=== PATIENT | male | born 1940 | race Caucasian/White ===

== ENCOUNTER → 2018-03-26 12:26 | Outpatient (CLI) | payer MEDICARE, OTHER, SELFPAY ==
--- NOTE | 2018-03-26 | DI.CT.S_ITS ---
PROCEDURE: CT LUMBAR SPINE WO CON INDICATIONS: Pain in lumbar spine TECHNIQUE: Noncontrast 3 mm thick sections acquired from the T12 level to the sacrum. Sagittal and coronal reformats were constructed. In this patient, 3-D reformatted images were also performed. For radiation dose reduction, the following was used: automated exposure control. COMPARISON: None. FINDINGS: Image quality: Excellent. Bones: No acute vertebral body compression fractures. No suspicious lytic or blastic bony lesions. Central spinal caliber is of normal overall caliber. No pars defects. S-shaped scoliotic curvature is seen. There is minimal retrolisthesis at L1-L2 and L2-L3. There is minimal anterolisthesis at L3-L4. Mild grade 1 anterolisthesis is seen at the L4-L5 level. No definite associated pars defects are seen. Minimal retrolisthesis is seen at L5-S1. T12-L1: Normal appearance. L1-L2: The disc height is well-preserved. Endplate irregularity is seen. Mild generalized disc bulge is seen. Moderate bilateral neural foraminal narrowing is seen, left greater than right. L2-L3: Moderate to severe loss of disc height is seen on the left side. Vacuum disc phenomenon is seen at this level. Endplate irregularity and sclerosis are seen. Endplate osteophyte formation can be seen, particularly on the left side. There is moderate left-sided and mild right-sided facet hypertrophy seen. There is moderate to severe bilateral neural foraminal narrowing seen. At least moderate central canal narrowing is seen. L3-L4: There is at least moderate loss of disc height. Vacuum disc phenomenon is seen at this level. Endplate irregularity is seen at this level, including mild Schmorl's nodes involving the inferior endplate of L3 and the superior endplate of L4. There is moderate to prominent facet hypertrophy seen, right worse than left. There is at least moderate bilateral neural foraminal narrowing seen at this level. Moderate to severe central canal narrowing is seen. L4-L5: Postoperative changes are seen at this level, with bilateral pedicle screws and vertical fixation rods. No findings of hardware failure or hardware loosening are seen. There is associated streak artifact. Bone grafting material is noted. There has been removal of portions of the posterior elements. At least moderate loss of disc height is seen. Partial calcification/ossification can be seen along this disc level. There is moderate bilateral neural foraminal narrowing seen, left worse than right. No central canal narrowing is seen. L5-S1: At least moderate loss of disc height is seen. Vacuum disc phenomenon is seen at this level. Endplate irregularity is seen, with endplate osteophyte formation. At least moderate bilateral neural foraminal narrowing seen. Mild central canal narrowing is seen. Soft tissues: No retroperitoneal masses or hematomas. Visualized aorta is normal in caliber. Atherosclerotic calcification is noted. A pacer lead is seen on the dry kiln worker image. IMPRESSION: Unremarkable L4-L5 postoperative change, without rashi postoperative complication. Multiple levels of degenerative change are seen, which are overall most prominent at the L3-L4 level, where there is at least moderate bilateral neural foraminal narrowing seen and moderate to severe central canal narrowing present. Dictated by: Anival Carranza M.D. on 03/26/2018 at 13:00 Approved by: Anival Carranza M.D. on 03/26/2018 at 13:08
== END ==
PROVIDERS: Visit Provider Orthopaedic Surgery
DX: M54.5 Low back pain (principal); M48.061 Spinal stenosis, lumbar region without neurogenic claudication
CPT/HCPCS: 72131

== ENCOUNTER 2018-04-16 09:41 | Inpatient (IN) | payer MEDICARE, OTHER, SELFPAY ==
[2018-04-08 09:47] VITALS: BMI 29.9
[2018-04-16] VITALS (32 sets, daily range): BP systolic 79–144; BP diastolic 41–99; PULSE 60–80; RESP 6–16; TEMP 35.8–36.9; O2SAT 80–100; BMI 29.0
--- NOTE | 2018-04-16 | DI.RAD.S_ITS ---
PROCEDURE: XR LUMBAR SPINE 2-3V INDICATIONS: XLIF L2-3, L3-4, L5-S1 TECHNIQUE: 2 intraoperative fluoroscopic views of the lumbar spine were acquired. COMPARISON: None. FINDINGS: Intraoperative fluoroscopic images of lumbar spine shows transpedicular fusion at L2-S1 levels with intervertebral spacer placement at L2-3, L3-4, and L5-S1 levels. There is also suggestion of laminectomy at L4-5 level. IMPRESSION: Fluoroscopy guidance was provided intraoperatively for lumbar spine fusion. Dictated by: Asher Becker M.D. on 04/16/2018 at 18:21 Approved by: Asher Becker M.D. on 04/16/2018 at 18:22
[2018-04-16] MEDS: LACTATED RINGERS 1,000 ML 42 ML IV ×3 (10:18→19:08)
--- NOTE | 2018-04-16 11:41 | PM.PREOP ---
Pre-operative Note Interval Note Pre-op Check: Yes History & Physical Reviewed by Physician and Yes Exam Performed Changes: No
--- NOTE | 2018-04-16 12:32 | P.OP_ITS ---
Operative Date/Time/Diagnoses Date of procedure: 04/16/18 Time of procedure: 18:00 Pre-op diagnosis: Lumbar stenosis with radiculopathy lumbar spondylolisthesis History of lumbar laminectomy Post-op diagnosis: same Procedure & Clinicians Procedure: L2-3 laminectomy L4-5 revision laminectomy L5-S1 revision laminectomy Use of microscope L2-3, L3-4 anterior fusion with cages L2-3, L3-4 posterior fusion L5-S1 TLIF (post/post innerbody fusion) with cage L2-S1 screws icbg placement of epidural catheter Indications: [age] year old male with intractable pain from stenosis. They had failed conservative management and requested operative intervention. Risks and benefits of surgery were discussed and appropriate consents were obtained. Surgeon: Raj Mcdaniel Quality And Reliability Engineer: Vandana Oconnor Anesthesia Type: General Operative Notes Findings: None Closure Type: primary Specimen(s): none sent Implants & Drains: NuVasive Reline Screws and XLIF cages Globus Rise cage Applied: catheter Estimated Blood Loss (mL): 150 Blood products transfused: none Procedure in detail: Patient was brought to the operating room and intubated on the table. Time-out was performed. They were then rolled over to the lateral decubitus position with the [id number]. The table was bent and they were taped down in the correct position. X-rays were taken to confirm a true AP and lateral. Preoperative antibiotics were given. The left flank was prepped and draped in standard sterile fashion. Using fluoroscopy, a 3 cm incision was made above the iliac crest. We bluntly dissected down with Metzenbaum scissors and split the 3 abdominal muscle layers. We dissected out the retroperitoneal space and using finger guidance, brought our 1st dilator down to the psoas muscle. Using neuromonitoring and fluoroscopy, we placed it through the psoas onto the L3-4 disc space in an anterior position and gradually pulled the dilator posteriorly along the disc space. We placed our guidewire and measured our depth for the retractor. We then dilated with the next 2 dilators and then placed our retractor over the dilators. Position was confirmed with fluoroscopy and the retractor was locked down to the bar. We opened up the retractor and checked with neuro monitoring. We then placed the candida and again checked with neuro monitoring. The retractor was opened further and the ALL retractor was placed. An annulotomy was performed. We then performed a complete diskectomy with ring curette, pituitary, box osteotome. A Del Valle was advanced across the disc space under fluoroscopy to release the lateral annulus on the opposite side. We then used sequentially larger trials and confirmed under fluoroscopy. An XLIF cage was packed with Osteocell bone graft and impacted into the L3-4 disc space with fluoroscopy for the anterior fusion at this level. The wound was irrigated. The retractor was closed down. The candida was removed. We carefully removed the retractor with direct visualization to make sure there was no neurovascular or abdominal injury. We then went up to the L2-3 level. Again we repeated the same procedure with dilators, retractor, lateral release, complete diskectomy, and placing a cage with bone graft into the anterior space for the anterior fusion at L2-3. We again carefully removed the retractor with direct visualization. Final x-rays were taken. The muscle fascia was closed, superficial tissue was closed. The skin was closed. Sterile dressing was placed. The patient was then rolled over on the well-padded prone position on the Alberto table. Using fluoroscopy for localization, a 14 cm incision was made in the midline using his previous incision. We dissected down the left sided paraspinal muscles to expose the lamina and confirmed our position. We then exposed the transverse processes at the level of fusion. We had to dig through some of the old bone but exposed our L4 and L5 [place] screws and removed the set screws and the nataly but kept the screws in place. We then began placing our screws. A bur was used to decorticate the junction of the facet and transverse process. We then advanced a gear shifter down the pedicle using neuro monitoring. We checked with the ball probe to confirm a floor and 4 singh on the pedicle. We then tapped also with neuro monitoring. We checked again with the ball probe and then placed our screw with neuro monitoring. The screws were placed in this fashion down the left pedicles of L2 , L3, and S1. The nataly was loosely placed and x-rays were taken to confirm positioning and then the set screws were locked down except S1. We then brought in the microscope. We started at L5-S1. A revision left-sided laminotomy was performed at this level. We used osteotomes to do a complete facetectomy to open up the foramen. We had carefully did through the scar tissue from the previous surgery. This was separate and distinct from a standard laminectomy for approach as this was a revision surgery with much more extensive and time consuming and delicate dissection through the scar. We then began the preparation for the TLIF. We cleared more bony tissue along the length of the pedicle. The dura was carefully retracted medially, releasing scar tissue to free it up. An annulotomy was performed. We then used a combination of paddles, Rain, curettes, and pituitaries to perform a complete diskectomy at L5-S1. We placed bone graft into the anterior disc space and then placed our globus Rise cage under fluoroscopic guidance. This was then expanded under fluoroscopy. We then locked down our S1 screw. We then went up to L3-4 to start our laminectomy. We used a combination of bur and Kerrison rongeurs. The lower 2/3 of the laminectomy was completely scarred in from his previous laminectomy and this was actually a revision level with amount of scar dissection had to be performed. We then to this up to L2-3 which was a first-time laminectomy. We carefully depressed the dura to reach to the opposite side and decompress the entire central canal. We cleared out the neural foramen. In the end the ball probe could be placed cephalad and caudally across to the opposite side in the foramen and everything was opened. The wound was copiously irrigated. A small stab incision was made over the PSIS and a Jamshidi needle was placed into the iliac crest and several mL of bone marrow was aspirated. This was mixed with our locally harvested bone graft as well as the remaining Osteocell and placed in the posterolateral gutter for fusion at L2-3, L3-4, and the posterior portion of the TLIF at L5S1. An epidural catheter was primed with 4mL of 0.5% bupivacaine, 100 mcg fentanyl, 4 mg Duramorph, 1 mg Stadol. The dura was depressed under the cephalad lamina with a ball probe and the epidural catheter was gently advanced 6 cm cephalad. The fascia was then closed. The epidural was then injected without resistance. The catheter was pulled and we closed more over the fascia. We then used fluoroscopy and made another 14 cm incision on the right side. We used Bovie to come down to split the fascia. We exposed our old screws on the right-sided L4 and L5. The set screws and nataly were removed. We then percutaneously placed Jamshidi needles down the right pedicles of L2, L3, and S1 with neural monitoring and fluoroscopy. These were switched out to guidewires, tapped and then our MAS Reline screws were placed. The nataly was placed and the set screws locked down. Final x-rays were taken. The wound was irrigated. The fascia was closed. Vancomycin powder was placed in the wounds. The superficial and skin were closed. Sterile dressing was placed. The patient was then rolled over, extubated, brought to the recovery room with no complications. Complications: none Condition: stable Disposition: PACU Plan for aftercare: Inpatient. Up with therapy.
[2018-04-16] MEDS: CEFAZOLIN 2 GM/100 ML FROZ.PIGGY IV (12:33)
--- NOTE | 2018-04-16 13:22 | SUR.OPER ---
Right lateral on padded OR table. Head on pillow, gel axillary roll, pillow to support left arm. Legs flexed, pillows between legs, gel pad under down leg and ankle. Multiple passes of 3 inch cloth tape across shoulder, hip, upper and lower legs to secure patient on OR table.
--- NOTE | 2018-04-16 13:22 | SUR.OPER ---
Prone on spine table, head in foam head support, padded chest and pelvic supports, gel pad at knees, lower legs supported by pillows; nipples, genitalia and toes free of pressure, arms secured on foam padded arm boards at <90 degrees abduction. Tape over blanket at thigh secured to table.
[2018-04-16] MEDS: SODIUM CHLORIDE 0.9% 1,000 ML, GENTAMICIN 80 MG IRR (13:32)
[2018-04-16] MEDS: THROMBIN (BOVINE) 5,000 UNIT VIAL 5000 UNIT TOP (13:32)
[2018-04-16] MEDS: BUPIVACAINE 0.5% (PF) 4 ML, MORPHINE-PF 4 MG, BUTORPHANOL 1 MG, fentaNYL 100 MCG INJ (13:34)
[2018-04-16] MEDS: VANCOMYCIN 1,000 MG VIAL 1000 MG TOP (13:34)
[2018-04-16] MEDS: CEFAZOLIN VIAL 2 GM in SODIUM CHLORIDE 0.9% 100 ML 200 ML IV (16:31)
--- NOTE | 2018-04-16 18:34 | SUR.PHASEI ---
Small abrasion (~2cm) noted to upper lip. No drainage seen.
--- NOTE | 2018-04-16 19:32 | SUR.PHASEI ---
Pulled at CPAO mask and it is removed. Oral airway remains in place with cannula tubing in opening and sats are actually improved. Some movement of arm as if trying to scratch cheeks. Not responding however to verbal command.
--- NOTE | 2018-04-16 19:34 | SUR.PHASEI ---
Informed Dr Mcdaniel about slow progress and patient will be transferred to an ICU bed.
--- NOTE | 2018-04-16 19:37 | SUR.PHASEI ---
Intermittent restlessness but no appropriate response to verbal stimulus.
--- NOTE | 2018-04-16 19:54 | SUR.PHASEI ---
At 1937 spit out oral airway and intermittent restlessness became more agitation. Still not following command. Some ups and downs with sats however generall in mid 90s on RA. Occasionall upper respiratory congestion- full snore. Movement of arms/hands to face as if trying to scartch. ? itch from epidural meds.
--- NOTE | 2018-04-16 19:58 | SUR.PHASEI ---
Dr Jack at bedside checking out situation and informed of transfer pending to ICU.
--- NOTE | 2018-04-16 21:07 | SUR.PHASEI ---
Prolonged PACU stay due to slow emergence from anesthesia, respiratory needs, and hemodynamics. By discharge VS had improved as did respiratory state but delerium persisted. Other than that factor, PACU discharge criteria met in the setting of a discharge to an ICU bed.
[2018-04-16] MEDS: LACTATED RINGERS 1,000 ML 125 ML IV (22:00)
--- NOTE | 2018-04-16 22:23 | PC.NURSE ---
2100- Patient arrived from PACU to room 105. Patient arousable with stimulus but when not stimulated patient drifts off to somulence. Patient is having apnea at times. Patient is unable to answer questions and has no family with him. Admit deferred due to patient inablility to answer questions.
[2018-04-17] VITALS (11 sets, daily range): BP systolic 104–118; BP diastolic 48–71; PULSE 60–66; RESP 15–21; TEMP 36.6–37.1; O2SAT 94–100
[2018-04-17] MEDS: CEFAZOLIN 2 GM/100 ML FROZ.PIGGY IV ×2 (00:56→06:51)
[2018-04-17] MEDS: METOPROLOL ER 50 MG TABLET 100 MG PO ×3 (01:00→20:49)
[2018-04-17] MEDS: LOSARTAN 50 MG TABLET 100 MG PO (01:01)
[2018-04-17] MEDS: GABAPENTIN 300 MG CAPSULE PO ×2 (01:02→20:49)
[2018-04-17] MEDS: AMLODIPINE 5 MG TABLET 10 MG PO ×2 (01:03→20:47)
[2018-04-17] MEDS: TAMSULOSIN 0.4 MG CAPSULE 0.8 MG PO ×2 (01:05→20:50)
[2018-04-17] MEDS: CELECOXIB 200 MG CAPSULE PO (01:05)
--- NOTE | 2018-04-17 05:13 | PC.NURSE ---
When pt turned and moved at 0405 noticed back dressing saturated through and leaking out side and bottom, skin surrounding cleaned and ABD applied with pack of 4x4s and underpad changed. Patient continues to deny pain, states this is the most pain free he has been in 2 months. Ice applied to back.
[2018-04-17 05:22] LABS: Hematocrit 35.8 % (41-53); Hemoglobin 12.4 g/dL (13.5-17.5)
[2018-04-17] MEDS: MAG HYDROX/ALUM/SIMETH 30 ML UDC PO (05:40)
--- NOTE | 2018-04-17 07:32 | PM.PNPO.1 ---
Subjective Date Patient Seen: 04/17/18 Time Patient Seen: 07:32 Interval history: He was very sedated postoperatively and had to be admitted to the ICU for overnight monitoring but the sedation wore off and he has been doing fine. Minimal discomfort at this point. Exam Vital Signs (past 8 hours): - 04/17/18 00:00 04/17/18 01:00 04/17/18 01:01 Temperature 98 F Pulse Rate 60 60 60 Respiratory Rate 16 Blood Pressure 118/65 118/65 118/65 Pulse Oximetry 100 04/17/18 02:00 04/17/18 02:12 04/17/18 05:26 Temperature 98.6 F Pulse Rate 60 61 Respiratory Rate 20 Blood Pressure 109/58 L 109/58 L 118/59 L Pulse Oximetry 100 Oxygen Delivery Method CPAP Oxygen Flow Rate 2 Const Orientation: alert and oriented x3 Back/Spine/Pelvis Other: 5/5 motor both lower extremities. He had saturated his dressing and this has been reinforced. Objective Labs Result Diagrams: 04/17/18 05:00 Labs: Laboratory Results - last 24 hr 04/17/18 05:00 Hgb 12.4 L Hct 35.8 L Assessment & Plan Post-op Postoperative Procedures Operation Date: 04/16/18 11:45 Actual Procedures Side Surgeon p L2-3,L3-4 redo L5-S1 Laminictomy & Instru Ant/Post Fusion w/bone graft L2-S1 Raj Mcdaniel MD he is doing very well today. No longer needs ICU care it can go to a regular floor bed. Mobilize with physical therapy. Anticipate custodial on discharge in 2 more days.
[2018-04-17] MEDS: FLECAINIDE 100 MG TABLET PO ×2 (09:11→20:49)
[2018-04-17] MEDS: DOCUSATE 100 MG CAPSULE PO ×2 (09:11→20:48)
[2018-04-17] MEDS: MULTIVITAMIN 1 TABLET 1 TAB PO (09:12)
[2018-04-17] MEDS: HYDROCODONE/ACET 5/325 TABLET 1 TAB PO ×2 (09:17→15:34)
--- NOTE | 2018-04-17 11:10 | PT.IIE ---
Current Diagnoses Spinal stenosis, lumbar region with neurogenic claudication (04/16/18) Strain of muscle, fascia and tendon of lower back, subsequent encounter (04/16/18) Other specified postprocedural states (04/16/18) Surgery Performed Operation Date: 04/16/18 11:45 Actual Procedures p L2-3,L3-4 redo L5-S1 Laminictomy & Instru Ant/Post Fusion w/bone graft L2-S1 - Raj Mcdaniel MD Surgical History (Last Updated 04/08/18 @ 10:20 by Cherelle Sevilla RN) History of lumbar surgery (Acute ~2010) History of total left hip arthroplasty (Acute 07/05/15) History of vasectomy (Acute) Hx of tonsillectomy (Acute) Status post cataract extraction of both eyes with insertion of intraocular lens (Acute) Medical History (Last Updated 04/08/18 @ 10:43 by Cherelle Sevilla RN) Anxiety (Acute) Arrhythmia (Acute) Arthritis (Acute) Depression (Acute) Easy bruisability (Acute) Enlarged prostate (Acute) Fracture of left lower leg (Acute) HTN (hypertension) (Acute) Hyperlipidemia (Acute) Nasal congestion (Acute) Numbness and tingling of both lower extremities (Acute) BIANKA on CPAP (Acute) PAF (paroxysmal atrial fibrillation) (Acute) Pacemaker (Acute 10/16/16) Post-nasal drip (Acute) Sciatica (Acute) Shoulder separation (Acute ~2017) Tachycardia (Acute) Vertigo (Acute) Physical Therapy Inpatient Evaluation/Re-Eval M1 PT/OT-IP Prior Functional Status Start: 04/17/18 13:01 Freq: NEEDED Status: Active Protocol: Document 04/17/18 11:10 [facility] (Rec: 04/17/18 13:11 [facility] [id number]) Medical Review Prior Functional Status Medical History Reviewed Yes Mobility and Gait indep. ambulator without device, short outdoor ambulation; using a FWW the past 2 wks prior to surgery d/ t pain Activities of Daily Living and IADL's indep. I/ADLs Social History Household Members none Living Arrangements House Number of Floors (Floors) Two Floors Number of Stairs To Enter/Railing? 2 SE R ascending rail; 2nd floor with 8 steps, landing, then 8 more steps (hobby room only upstairs, does not need to go up/down stairs inside upon return home) Home Environment High Toilet Walk in Shower Home Equipment Front Wheel Walker Shower Seat with Backrest M2 PT-IP Current Condition Start: 04/17/18 13:01 Freq: NEEDED Status: Active Protocol: Document 04/17/18 11:10 [facility] (Rec: 04/17/18 13:11 [facility] [id number]) Physical Therapy Current Condition Current Condition Evaluation Date 04/17/18 Treatment Diagnosis L2-4 redo/L5-S1 lami/fusion , impaired gait and mobility Precautions Lumbar Precautions Log Roll No Twisting Limit Bending Lifting Restriction of 10 lbs Gait Belt above Incisional Area M3 PT-IP Subjective Start: 04/17/18 13:01 Freq: NEEDED Status: Active Protocol: Document 04/17/18 11:10 [facility] (Rec: 04/17/18 13:11 [facility] [id number]) Subjective Physical Therapy Visit Type Type Initial Evaluation Visit Start Time 10:34 Visit Stop Time 11:10 Total Visit Minutes 36 Number of LEATHER ROLLER Visits 0 Physical Therapy Visit Comments Patient Comments pt states the pain meds making him a little loopy. Patient Goals pt wants to regain independence Therapy Pain Assessment Pain When Pain Assessed During Mobility Pain Present Pain Present Pain Reported Location Back Intensity 3 Scale Used Numeric (1 - 10) M4 PT-IP Mobility and Gait Start: 04/17/18 13:01 Freq: NEEDED Status: Active Protocol: Document 04/17/18 11:10 [facility] (Rec: 04/17/18 13:11 [facility] [id number]) PT-Bed Mobility Assessment Rolling Type of Rolling Log Rolling Level of Assist Moderate Assistance 1 Person Assistance Supine to Sit Supine to Sit Moderate Assistance 1 Person Assistance Bedrails Scooting Scooting to Edge of Bed Minimal Assistance PT-Transfer Assessment Sit to and From Stand Sit to and from Stand Contact Guard Assistance Use of Upper Extremities Equipment Transfer Assistive Device Gait Belt Front Wheeled Walker Transfers Transfer Destination Chair Transfer Technique Stand Step Pivot Transfer Ability Level of Assist Contact Guard Assistance Comments Mobility Comments BP 98/48 supine, 109/71 sitting with no c/o dizziness or lightheadedness but does state loopy from pain meds. Gait Assessment Gait Gait Assistance Required: Contact Guard Assist Distance (Feet) 10 Assistive Devices Assistive Device Gait Belt Front Wheeled Walker Gait Deviations General Gait Pattern Antalgic Decreased Stride Length Decreased Feet Clearance Factors Limiting Gait Function Factors Limiting Gait Function Decreased Activity Tolerance Decreased Strength Pain Poor Balance PT-Balance Assessment Sitting Balance and Reactions Static Sitting Balance Ability Good Dynamic Sitting Balance Ability Good Standing Balance and Reactions Static Standing Balance Ability Fair Dynamic Standing Balance Ability Fair Device Used FWW M5 PT-IP Objective Assessments Start: 04/17/18 13:01 Freq: NEEDED Status: Active Protocol: Document 04/17/18 11:10 [facility] (Rec: 04/17/18 13:11 [facility] [id number]) Orientation Orientation/Cognition Level of Alertness Alert Orientation Name Age Situation Gross Range of Motion Lower Extremity ROM Assessment Within Functional Limits Strength Lower Extremity Strength Hip hip flexion 3+/5 B Knee flexion 4/5 B, extension 5/5 B Ankle DF 4/5 R and 5/5 L Coordination Assessment Gross Coordination Gross Coordination WNL Sensation Assessment Sensation Gross Sensation WNL Muscle Tone Muscle Tone WNL Yes M6 PT-IP Treatment Start: 04/17/18 13:01 Freq: NEEDED Status: Active Protocol: Document 04/17/18 11:10 [facility] (Rec: 04/17/18 13:11 [facility] [id number]) Physical Therapy Treatment Education Education Provided Precautions Post-Op Packet Safety M7 PT-IP Assessment and Plan Start: 04/17/18 13:01 Freq: NEEDED Status: Active Protocol: Document 04/17/18 11:10 [facility] (Rec: 04/17/18 13:11 [facility] [id number]) PT Summary Assessment and Plan Potential Rehabilitation Potential Good Status of Condition at Evaluation Stable Summary Impairments Pain Strength Balance Bed Mobility Transfers Gait Activity Tolerance Assessment Summary POD #1 L2-3, L3-4 redo, L5-S1 laminectomy & fusion. Pt able to get OOB with 1 assist, and ambulate a short distance with a FWW, but very limited mobility given his impaired activity tolerance and mobility. Pt is unable to walk household distances, and does not have any assistance at home upon d/c. Pt is well below a safe functional level to thrive at home, however, he is a strong candidate for SNF rehabilitation upon d/c to progress his gait, activity tolerance, functional independence, and to promote a safe recovery. Treatment Plan Physical Therapy Treatment Plan Bed Mobility Training Transfer Training Gait Training Balance Retraining Discharge Planning Hot or Cold Pack Neuromuscular Re-ed Other Recommendations and Next Treatment prog. gait, review precautions Focus and log roll Recommendations To Nursing Amount of Assist Needed 1 Person Assist Discharge Recommendations PT Discharge Recommendations SNF Rehab
--- NOTE | 2018-04-17 13:38 | PC.NURSE ---
Pt sitting up to chair most of this shift. Able to ambulate in [place] with PT. Reports minimal pain. Notes some sang drainage on previously reinforced dsg. Removed excess gauze and reinforced with fresh 4X4s. Secured with paper tape. RA sat 100% while awake.
--- NOTE | 2018-04-17 14:00 | CM.DANOTE ---
Patient is an 78 year old male who was admitted on 04/16/18 for Surgery. Pt has [employer] and [employer] for insurance and his PCP is Dr. Ellison. EMR was reviewed. Per Ortho , pt tolerated procedure and now floor care status and likely need SNF at d/c. Per PT, recommending SNF prior to safe return home alone. SW met bedside with pt and explained role and he confirmed that he lives at home alone between [facility] and [facility] and is mostly independent with ADL's at baseline. Pt confirms that his son Jimmy is his DPOA and states he has hired private pay caregivers through [facility] for additional support after discharge and amount of hours and days to still be determined as they are a new service for him. Pt denies any hx of HH or SNF and states he is agreeable to SNF at d/c prior to safe return home since he is below baseline for ambulation and currently requiring oxygen. SW provided the SNF Choice List and pt states his preference would be 1) [facility] 2) [facility] and requesting referral first sent to [facility]. SW inquired if pt would like SW to contact anyone with updates on d/c plan and pt states he will have visitors from his family and caregiver later today and he would update them. SW updated White board with contact info for d/c train planner. SW faxed pt facesheet to [facility] and requested review for possible placement at d/c prior to return home. PASRR completed. Plan: SW to follow for [facility] review for possible placement at d/c when medically stable prior to safe return home alone with private pay caregiver support. SUGEY Arellano Discharge Planning/Care Management CM Discharge Assessment Start: 04/17/18 13:55 Freq: Status: Active Protocol: Document 04/17/18 13:57 BF (Rec: 04/17/18 14:00 BF [id number]) Discharge Planning Assessment Assigned Welder Gun SUGEY Schofield DPOA/Assigned Designee Name son Jimmy Hedrick Contact Information [phone] Advance Directives? Yes Advance Directives on File No History Provided By Patient Medical Record Has Patient been admitted in last 30 No days? Prior Living Arrangements House Household Members none Comment Patient resides at home alone and typically is Independent at baseline but has set up some private pay caregiving for additional support. Independent with ADL's Yes Is patient alert and oriented? Yes Needs Assistance With Home Chores / Shopping Caregiver for Another No Patient/Family Preference Senior Living Facility Comment Patient agreeable with SNF prior to safe return home Barriers to Discharge No Discharge Plan Senior Living Facility Transportation Arrangement Likely provided by SNF at d/c Referrals Initiated Senior Living If patient plan is SNF: Has PASSR been Yes completed? Medicare Choice List Provided Yes SNF/HH Preference 1) [facility] 2) [facility] Has Agency SNF been contacted Yes Comment Only referral to [facility] still Whiteboard Updated in Patient Room with Yes name and ext. # of Welder Gun Review Status In Process Please Provide Date Initial DC 04/17/18 Assessment Was Performed Next Review Type Continued Stay Review Pre-Anesthesia Assessment Start: 04/08/18 09:47 Freq: Status: Complete Protocol: Document 04/08/18 09:47 CAB (Rec: 04/08/18 10:39 [facility] [id number]) Pre-Anesthesia Assessment Patient Information Reviewed Via Phone Assessment Assessment Completed With Patient H&P Completed Within 30 Days Yes Lab Results EKG Primary Care Provider Edwar Ellison Seen Specialist in Last 12 Months Yes Specialist Seen Stage Builder Orthopedist Primary Language [place] Radioactive Waste Disposal Dispatcher Required No Height 172.72 cm Weight 89.358 kg Body Mass Index (BMI) 29.9 Hearing Ability Hard of Hearing Use of Hearing Aid Visual Assist Glasses Dentition Type Teeth, Natural Present Barriers to Learning Auditory Hx Anesthesia Reactions No Hx Family Anesthesia Reaction No Hx Malignant Hyperthermia No Hx Blood Transfusions No Anesthesia Review Requested No Certified Emergency Vehicle Technician No alcohol intake current alcohol intake frequency 0-2 drinks per day Smoking Status Former smoker Tobacco type cigarettes how long ago did patient quit smoking Quit age 23 Substance Use Type does not use Pain Present Pain Reported Musculoskeletal Symptoms Abnormal Gait Back Pain Difficulty Walking Joint Pain Numbness Tingling Patient is completely paralyzed or No completely immobile Prosthesis or Orthotic Device Front Wheel Walker Mental Status Oriented to own ability Comment limited walking range r/t pain Is patient on oxygen? No Does patient have BLANC/SOB No Hx Sleep Apnea Yes CPAP/BIPAP use prescribed and used routinely Will Bring CPAP/BIPAP DOS Yes Currently Taking a Beta Nawaf Yes: Metoprolol Can You Climb a Flight of Stairs Without Yes SOB Hx Chest Pain No Hx SOB No Hx Syncope or Dizziness Yes: Occasional vertigo Anti-Coagulant Therapy Yes: Eliquis-Advised to hold 3 days prior per Cardiology Has a Stage Builder Yes: Dr. Arriola visit 04/01 Cardiac Testing Yes: ECHO 08/12/17, Nuc stress 08/13/17 Hx Pacemaker/ICD Yes Pacemaker Rep Required? Yes: Rep contacted 04/08/18 Cardiac Clearance Received Yes Comment Cardiac clearance, testing, and pacemaker form to [facility] records Diet Type At Home Regular dysphagia No Bladder Pattern Nocturia Urinary Catheter Present No Hx Urinary Self Catheterization No Diabetes No Hx Drug Resistant Organism No Presence of External or Internal Medical Yes Devices Comment Pacemaker Have you traveled outside the [facility] in the last 30 days? Marital Status Lives With none Prior Living Arrangements House Number of Floors (Floors) Two Floors Number of Stairs To Enter/Railing? none Support System Child/Children Friend(s) Does the Patient Have Assistance After No: Possibility, nothing firm Surgery yet Patient Discharge Plan Description Home Health Return Home Comment Pt advised 3-4 day length of stay per robin's office. Son lives in [place] Feels Safe in Current Environment Yes Been Physically Hurt or Threatened By a No Person in Current Environment Do you have thoughts of harming yourself None or others? Are you currently considering suicide? No Do you have a plan to hurt yourself or No Plan others? Do You Have Any Spiritual Beliefs That No May Affect Your HC Choices? Do You Have Any Cultural Practices That No May Affect Your HC Choices? Spiritual Referral None Who Can We Speak to About Patient's Care Family, friends Identifying Code for Release of Patient Declines to issue Information Health Care Proxy/Next of Kin Jimmy Hedrick (son) Health Care Proxy Emergency Contact Name Jimmy Hedrick (son) Emergency Contact Advance Directives? Yes Advance Directives on File No Requested Patient Bring Advanced Yes Directives DOS Power of Electrolysis Needle Operator Yes Power of Electrolysis Needle Operator Name Jimmy Hedrick (son) Power of Electrolysis Needle Operator PAC Instructions Bring CPAP/BIPAP Do not shave/clip surgical site Durable medical equipment Medications to take/avoid Nasal antibiotic No ETOH/petroleum product on skin DOS NPO Post-op transportation Pre-surgical wash Sturdy shoes/comfortable clothes Do not bring valuables and remove jewelry
--- NOTE | 2018-04-17 14:55 | PT.IPTN ---
Current Diagnoses Spinal stenosis, lumbar region with neurogenic claudication (04/16/18) Strain of muscle, fascia and tendon of lower back, subsequent encounter (04/16/18) Other specified postprocedural states (04/16/18) Surgery Performed Operation Date: 04/16/18 11:45 Actual Procedures p L2-3,L3-4 redo L5-S1 Laminictomy & Instru Ant/Post Fusion w/bone graft L2-S1 - Raj Mcdaniel MD Physical Therapy Treatment Note M2 PT-IP Current Condition Start: 04/17/18 13:01 Freq: NEEDED Status: Active Protocol: Document 04/17/18 14:55 [facility] (Rec: 04/17/18 15:57 [facility] [id number]) Physical Therapy Current Condition Current Condition Evaluation Date 04/17/18 Treatment Diagnosis L2-4 redo/L5-S1 lami/fusion , impaired gait and mobility Precautions Lumbar Precautions Log Roll No Twisting Limit Bending Lifting Restriction of 10 lbs Gait Belt above Incisional Area M3 PT-IP Subjective Start: 04/17/18 13:01 Freq: NEEDED Status: Active Protocol: Document 04/17/18 14:55 [facility] (Rec: 04/17/18 15:57 [facility] [id number]) Subjective Physical Therapy Visit Type Type Treatment Note Visit Start Time 14:30 Visit Stop Time 14:55 Total Visit Minutes 25 Number of CUSTOMER SERVICE REPRESENTATIVE Visits 0 Physical Therapy Visit Comments Patient Comments pt notes that a nap did him well this afternoon. M4 PT-IP Mobility and Gait Start: 04/17/18 13:01 Freq: NEEDED Status: Active Protocol: Document 04/17/18 14:55 [facility] (Rec: 04/17/18 15:57 [facility] [id number]) PT-Bed Mobility Assessment Rolling Type of Rolling Log Rolling Level of Assist Minimal Assistance 1 Person Assistance Supine to Sit Supine to Sit Minimal Assistance 1 Person Assistance Scooting Scooting to Edge of Bed Standby Assistance PT-Transfer Assessment Sit to and From Stand Sit to and from Stand Contact Guard Assistance Use of Upper Extremities Equipment Transfer Assistive Device Gait Belt Front Wheeled Walker Transfers Transfer Destination Chair Transfer Technique Stand Step Pivot Transfer Ability Level of Assist Contact Guard Assistance Gait Assessment Gait Gait Assistance Required: Contact Guard Assist Distance (Feet) 100 Assistive Devices Assistive Device Gait Belt Front Wheeled Walker Gait Deviations General Gait Pattern Antalgic Decreased Stride Length Factors Limiting Gait Function Factors Limiting Gait Function Decreased Activity Tolerance Decreased Strength Pain Comments Gait Comments Mild impaired L foot placement during gait due to pain and weakness. M5 PT-IP Objective Assessments Start: 04/17/18 13:01 Freq: NEEDED Status: Active Protocol: Document 04/17/18 11:10 [facility] (Rec: 04/17/18 13:11 [facility] [id number]) Orientation Orientation/Cognition Level of Alertness Alert Orientation Name Age Situation Gross Range of Motion Lower Extremity ROM Assessment Within Functional Limits Strength Lower Extremity Strength Hip hip flexion 3+/5 B Knee flexion 4/5 B, extension 5/5 B Ankle DF 4/5 R and 5/5 L Coordination Assessment Gross Coordination Gross Coordination WNL Sensation Assessment Sensation Gross Sensation WNL Muscle Tone Muscle Tone WNL Yes M6 PT-IP Treatment Start: 04/17/18 13:01 Freq: NEEDED Status: Active Protocol: Document 04/17/18 11:10 [facility] (Rec: 04/17/18 13:11 [facility] [id number]) Physical Therapy Treatment Education Education Provided Precautions Post-Op Packet Safety M7 PT-IP Assessment and Plan Start: 04/17/18 13:01 Freq: NEEDED Status: Active Protocol: Document 04/17/18 14:55 [facility] (Rec: 04/17/18 15:57 [facility] [id number]) PT Summary Assessment and Plan Summary Assessment Summary POD #1. Pt with improvements with bed mobility to Min A for log roll, and reminders of precautions to not twist when turning with ambulation. Pt was able to increase his gait distance this session. Overall , pt has improved since earlier this date, but still requires physical assistance for bed mobility, and is below his prior level of function. Goals Bed Mobility Goal Independent Transfer Goal Independent Gait Goal Independent Front Wheel Walker Gait Distance 300 ft Other Goals up/down 2 steps R ascending rail and SBA Days to Meet Goals 5 Frequency of Treatment Frequency Of Treatment Twice a Day Treatment Plan Other Recommendations and Next Treatment bed mobility, review Focus precautions, gait and stairs Recommendations To Nursing Amount of Assist Needed 1 Person Assist Discharge Recommendations PT Discharge Recommendations SNF Rehab
--- NOTE | 2018-04-17 16:47 | OT.IP.EVAL ---
Current Diagnoses Spinal stenosis, lumbar region with neurogenic claudication (04/16/18) Strain of muscle, fascia and tendon of lower back, subsequent encounter (04/16/18) Other specified postprocedural states (04/16/18) Surgery Performed Operation Date: 04/16/18 11:45 Actual Procedures p L2-3,L3-4 redo L5-S1 Laminictomy & Instru Ant/Post Fusion w/bone graft L2-S1 - Raj Mcdaniel MD Past Medical History (Last Updated 04/08/18 @ 10:43 by Cherelle Sevilla RN) Anxiety (Acute) Arrhythmia (Acute) Arthritis (Acute) Depression (Acute) Easy bruisability (Acute) Enlarged prostate (Acute) Fracture of left lower leg (Acute) HTN (hypertension) (Acute) Hyperlipidemia (Acute) Nasal congestion (Acute) Numbness and tingling of both lower extremities (Acute) BIANKA on CPAP (Acute) PAF (paroxysmal atrial fibrillation) (Acute) Pacemaker (Acute 10/16/16) Post-nasal drip (Acute) Sciatica (Acute) Shoulder separation (Acute ~2017) Tachycardia (Acute) Vertigo (Acute) Surgical History (Last Updated 04/08/18 @ 10:20 by Cherelle Sevilla RN) History of lumbar surgery (Acute ~2010) History of total left hip arthroplasty (Acute 07/05/15) History of vasectomy (Acute) Hx of tonsillectomy (Acute) Status post cataract extraction of both eyes with insertion of intraocular lens (Acute) Occupational Therapy Inpatient Evaluation/Re-Eval M1 PT/OT-IP Prior Functional Status Start: 04/17/18 13:01 Freq: NEEDED Status: Active Protocol: Document 04/17/18 11:10 [facility] (Rec: 04/17/18 13:11 [facility] [id number]) Medical Review Prior Functional Status Medical History Reviewed Yes Mobility and Gait indep. ambulator without device, short outdoor ambulation; using a FWW the past 2 wks prior to surgery d/ t pain Activities of Daily Living and IADL's indep. I/ADLs Social History Household Members none Living Arrangements House Number of Floors (Floors) Two Floors Number of Stairs To Enter/Railing? 2 SE R ascending rail; 2nd floor with 8 steps, landing, then 8 more steps (hobby room only upstairs, does not need to go up/down stairs inside upon return home) Home Environment High Toilet Walk in Shower Home Equipment Front Wheel Walker Shower Seat with Backrest M1 PT/OT-IP Prior Functional Status Start: 04/17/18 16:30 Freq: NEEDED Status: Active Protocol: Document 04/17/18 16:32 [facility] (Rec: 04/17/18 16:47 [facility] [id number]) Medical Review Prior Functional Status Medical History Reviewed Yes Mobility and Gait indep. ambulator without device, short outdoor ambulation; using a FWW the past 2 wks prior to surgery d/ t pain Activities of Daily Living and IADL's indep. I/ADLs. Pt states wears slipper at home. Social History Household Members none Living Arrangements House Number of Floors (Floors) Two Floors Number of Stairs To Enter/Railing? 2 SE R ascending rail; 2nd floor with 8 steps, landing, then 8 more steps (hobby room only upstairs, does not need to go up/down stairs inside upon return home) Home Environment High Toilet Walk in Shower Home Equipment Front Wheel Walker Shower Seat with Backrest M2 OT-IP Current Condition Start: 04/17/18 16:30 Freq: Status: Active Protocol: Document 04/17/18 16:32 [facility] (Rec: 04/17/18 16:47 [facility] [id number]) Occupational Therapy Current Condition Current Condition Evaluation Date 04/17/18 Treatment Diagnosis Spinal Stenosis Diagnosis Onset Date 04/16/18 Post Operative Precautions Lumbar Precautions Log Roll No Twisting Limit Bending Lifting Restriction of 10 lbs Gait Belt above Incisional Area M3 OT- IP Subjective and Pain Start: 04/17/18 16:30 Freq: Status: Active Protocol: Document 04/17/18 16:32 [facility] (Rec: 04/17/18 16:47 [facility] [id number]) OT- Subjective Occupational Therapy Visit Type Type Initial Evaluation Visit Start Time 15:30 Visit Stop Time 16:00 Total Visit Minutes 30 Occupational Therapy Visit Comments Patient Comments Pt agreeable to do therapy. OT Pain Assessment Pain When Pain Assessed At Rest Pain Present Pain Present Pain Reported Location Back Intensity 3 Scale Used Numeric (1 - 10) M4 OT- IP ADL's Start: 04/17/18 16:30 Freq: Status: Active Protocol: Document 04/17/18 16:32 [facility] (Rec: 04/17/18 16:47 [facility] [id number]) OT ADL-Dressing General Eval Lower Body Dressing Ability Maximum Assistance Areas Needing Assistance Socks Comments OT Dressing Comments Able to educate to of use of sock aid, speech professor for LB dressing needs. Pt already has long handled shoe horn and sponge at home. OT ADL-Toileting Comments OT Toileting Comments Pt heavily relies on his arm to come to stand and would benefit from RTS or BSC. Educated to stand after pericare needs. OT ADL-Bathing Comments OT Bathing Comments Pt has borrowed shower chair with back from a friend and already has HHSp. M6 OT- IP Functional Cognition Start: 04/17/18 16:30 Freq: Status: Active Protocol: Document 04/17/18 16:32 [facility] (Rec: 04/17/18 16:47 [facility] [id number]) Cognitive Factors Limiting Selfcare Function Cognitive Ability Level of Alertness Alert Patient Orientation Name Place Situation Attention Span Ability Capable of Focused Attention Capable of Sustained Attention Ability to Follow Commands Able to Follow One Step Commands Memory Description Immediate Intact Short Term Impaired Medical Sales Associate Intact Safety Awareness Decreased Ability to Apply Precautions Underestimates Need for Assistance Problem Solving Ability Needs Assist to Identify Solutions Cognitive Comments Cognitive Assessment Comments Pt needing reminders of back precautions and only able to recall 1/3 at this time. Pt also needing vc to help incorporate back precautions for needs and needing education to think about what changes need to happen at home, ie has a low stressless recliner at home, may benefit from 4ww when moving better so able to carry items, or may need to hire assist for needs. M7 OT- IP Mobility and Balance Start: 04/17/18 16:30 Freq: Status: Active Protocol: Document 04/17/18 16:32 [facility] (Rec: 04/17/18 16:47 [facility] [id number]) OT-Transfer Assessment Sit to and From Stand Sit to and from Stand Contact Guard Assistance Transfers Transfer Ability Contact Guard Assistance 1 Person Assistance Technique Transfer Destination Chair Devices Transfer Assistive Devices Gait Belt Front Wheeled Walker Comments Mobility Comments CGA with heavy use of BUE on armrest to stand to FWW. OT- Balance Assessment Sitting Balance and Reactions Static Sitting Balance Ability Normal Dynamic Sitting Balance Ability Good Standing Balance and Reactions Static Standing Balance Ability Good Dynamic Standing Balance Ability Fair M8 OT- IP Objective Assessments Start: 04/17/18 16:30 Freq: Status: Active Protocol: Document 04/17/18 16:32 [facility] (Rec: 04/17/18 16:47 [facility] [id number]) OT Gross Range of Motion Upper Extremity Range of Motion Assessment Within Functional Limits OT Strength Comments Strength Comments BUE 4/5 M9 OT- IP Assessment and Plan Start: 04/17/18 16:30 Freq: Status: Active Protocol: Document 04/17/18 16:32 [facility] (Rec: 04/17/18 16:47 [facility] [id number]) OT Summary Assessment and Plan Potential Rehabilitation Potential Good Analytic Complexity at Evaluation Low Summary OT Impairments Pain Balance Functional Cognition Functional Mobility Grooming Dressing Toileting Bathing Toilet Transfers Shower Transfers Progress Towards Goals Progressing Toward Goals Slow Progress due to Cognition Assessment Summary Pt Low complexity and main barriers are pain, steps, and decreased ability to recall back precautions and incorporate during needs. Pt would benefit from skilled rehab to improve overall safety and independence for ADl and functional mobility needs. Goals Grooming Goal Independent Dressing Goal Independent Toileting Goal Independent Bathing Goal Standby Assistance Toilet Transfer Goal Independent Shower Transfer Goal Standby Assistance Days to Meet Goals 5 Frequency of Treatment Frequency Of Treatment Once a Day Treatment Plan OT Treatment Plan ADL Training Functional Cognition Training Functional Mobility Patient/Family Education Discharge Planning Discharge Recommendations OT Discharge Recommendations SNF Rehab
--- NOTE | 2018-04-17 19:12 | PC.NURSE ---
1900- Patient assisted to the bed. Back dressing saturated and oozing. Dressing taken down to the surgical site. Area cleaned using sterile technique. Wound is well approximated and sutures intact. Dressing applied to site. Patient tolerated well.
[2018-04-17] MEDS: CHLORTHALIDONE 25 MG TABLET 12.5 MG PO (20:48)
[2018-04-17] MEDS: SENNOSIDES 8.6 MG TABLET 17.2 MG PO (20:50)
[2018-04-17] MEDS: SIMVASTATIN 20 MG TABLET PO (20:50)
[2018-04-18] VITALS (11 sets, daily range): BP systolic 104–126; BP diastolic 45–66; PULSE 57–72; RESP 15–18; TEMP 36.6–37.2; O2SAT 94–97
[2018-04-18] MEDS: HYDROCODONE/ACET 5/325 TABLET 1 TAB PO ×4 (05:27→20:26)
[2018-04-18] MEDS: MULTIVITAMIN 1 TABLET 1 TAB PO (09:04)
[2018-04-18] MEDS: DOCUSATE 100 MG CAPSULE PO ×2 (09:04→20:26)
[2018-04-18] MEDS: FLECAINIDE 100 MG TABLET PO ×2 (09:04→20:27)
--- NOTE | 2018-04-18 10:00 | PT.IPTN ---
Current Diagnoses Spinal stenosis, lumbar region with neurogenic claudication (04/16/18) Strain of muscle, fascia and tendon of lower back, subsequent encounter (04/16/18) Other specified postprocedural states (04/16/18) Surgery Performed Operation Date: 04/16/18 11:45 Actual Procedures p L2-3,L3-4 redo L5-S1 Laminictomy & Instru Ant/Post Fusion w/bone graft L2-S1 - Raj Mcdaniel MD Physical Therapy Treatment Note M2 PT-IP Current Condition Start: 04/17/18 13:01 Freq: NEEDED Status: Active Protocol: Document 04/18/18 10:00 [facility] (Rec: 04/18/18 12:09 [facility] [id number]) Physical Therapy Current Condition Current Condition Evaluation Date 04/17/18 Treatment Diagnosis L2-4 redo/L5-S1 lami/fusion , impaired gait and mobility Precautions Lumbar Precautions Log Roll No Twisting Limit Bending Lifting Restriction of 10 lbs Gait Belt above Incisional Area M3 PT-IP Subjective Start: 04/17/18 13:01 Freq: NEEDED Status: Active Protocol: Document 04/18/18 10:00 [facility] (Rec: 04/18/18 12:09 [facility] [id number]) Subjective Physical Therapy Visit Type Type Treatment Note Visit Start Time 09:44 Visit Stop Time 10:00 Total Visit Minutes 16 Number of WIRELESS MANAGER Visits 0 Physical Therapy Visit Comments Patient Comments pt slept well last night, his pain is a little more today but tolerable. M4 PT-IP Mobility and Gait Start: 04/17/18 13:01 Freq: NEEDED Status: Active Protocol: Document 04/18/18 10:00 [facility] (Rec: 04/18/18 12:09 [facility] [id number]) PT-Bed Mobility Assessment Rolling Type of Rolling Log Rolling Level of Assist Minimal Assistance 1 Person Assistance Sit to Supine Sit to Supine Minimal Assistance 1 Person Assistance PT-Transfer Assessment Sit to and From Stand Sit to and from Stand Standby Assistance Use of Upper Extremities Equipment Transfer Assistive Device Gait Belt Front Wheeled Walker Transfers Transfer Destination Bed Transfer Technique Stand Step Pivot Transfer Ability Level of Assist Standby Assistance Gait Assessment Gait Gait Assistance Required: Standby Assistance Distance (Feet) 150 Assistive Devices Assistive Device Gait Belt Front Wheeled Walker Gait Deviations General Gait Pattern Antalgic Decreased Stride Length Factors Limiting Gait Function Factors Limiting Gait Function Decreased Activity Tolerance Decreased Strength Pain M5 PT-IP Objective Assessments Start: 04/17/18 13:01 Freq: NEEDED Status: Active Protocol: Document 04/17/18 11:10 [facility] (Rec: 04/17/18 13:11 [facility] [id number]) Orientation Orientation/Cognition Level of Alertness Alert Orientation Name Age Situation Gross Range of Motion Lower Extremity ROM Assessment Within Functional Limits Strength Lower Extremity Strength Hip hip flexion 3+/5 B Knee flexion 4/5 B, extension 5/5 B Ankle DF 4/5 R and 5/5 L Coordination Assessment Gross Coordination Gross Coordination WNL Sensation Assessment Sensation Gross Sensation WNL Muscle Tone Muscle Tone WNL Yes M6 PT-IP Treatment Start: 04/17/18 13:01 Freq: NEEDED Status: Active Protocol: Document 04/17/18 11:10 [facility] (Rec: 04/17/18 13:11 [facility] [id number]) Physical Therapy Treatment Education Education Provided Precautions Post-Op Packet Safety M7 PT-IP Assessment and Plan Start: 04/17/18 13:01 Freq: NEEDED Status: Active Protocol: Document 04/18/18 10:00 [facility] (Rec: 04/18/18 12:09 [facility] [id number]) PT Summary Assessment and Plan Summary Assessment Summary POD #2. Pt requires assistance getting back into bed due to impaired strength and core stability (unable to get LEs cleared of bed using reverse log roll). Pt was SBA for ambulation today, but requires cuing to remind him of not twisting at the low back during turns. Pt is improving, but still requires cuing and manual assistance with bed mobility. Pt would benefit from SNF rehabilitation upon d /c to progress his strength, safety with compliance with precautions, and improving overall functional independence. Goals Bed Mobility Goal Independent Transfer Goal Independent Gait Goal Independent Front Wheel Walker Gait Distance 300 ft Other Goals up/down 2 steps R ascending rail and SBA Days to Meet Goals 5 Frequency of Treatment Frequency Of Treatment Twice a Day Treatment Plan Other Recommendations and Next Treatment bed mobility-log roll, review Focus precautions, gait and stairs Recommendations To Nursing Amount of Assist Needed 1 Person Assist Discharge Recommendations PT Discharge Recommendations SNF Rehab
[2018-04-18] MEDS: METOPROLOL ER 50 MG TABLET 100 MG PO ×2 (10:48→20:27)
--- NOTE | 2018-04-18 11:17 | PM.PN.1 ---
Exam Vital Signs (past 8 hours): - 04/18/18 05:20 04/18/18 08:00 04/18/18 10:48 Temperature 98.6 F 98.1 F Pulse Rate 57 L 60 62 Respiratory Rate 17 16 Blood Pressure 104/48 L 104/51 L 104/45 L Pulse Oximetry 96 94 Oxygen Delivery Method Room Air Oxygen Flow Rate 1 Objective Labs Result Diagrams: 04/17/18 05:00 Assessment & Plan Plan: Assessment/Plan Narrative: Patient is POD #2 s/p lumbar fusion. He is doing well. His legs are much improved from his pre-op symptoms. His dressing has been changed due to saturation last night. Continue PT and possible discharge tomorrow. Neuro intact on exam today.
--- NOTE | 2018-04-18 13:49 | PC.NURSE ---
1340 Pt arrived to room 209 via w/c from ICU. Pt is AOX3. Able to transfer to bed w/min assist of one. SL in place. Pt denies pain at this time. Pt states he will call his son & notify of the move to acute care. Bladder scan being done since dusty carmona at 0900 this AM. Pt not sure if he voided. bed alarms on. 1355 Pt scanned for 515 ml urine.
[2018-04-18] MEDS: hydrOXYzine pamoate 25 MG CAPSULE PO (14:02)
--- NOTE | 2018-04-18 15:26 | PT.IPTN ---
Current Diagnoses Spinal stenosis, lumbar region with neurogenic claudication (04/16/18) Strain of muscle, fascia and tendon of lower back, subsequent encounter (04/16/18) Other specified postprocedural states (04/16/18) Surgery Performed Operation Date: 04/16/18 11:45 Actual Procedures p L2-3,L3-4 redo L5-S1 Laminictomy & Instru Ant/Post Fusion w/bone graft L2-S1 - Raj Mcdaniel MD Physical Therapy Treatment Note M2 PT-IP Current Condition Start: 04/17/18 13:01 Freq: NEEDED Status: Active Protocol: Document 04/18/18 15:26 [facility] (Rec: 04/18/18 15:46 [facility] [id number]) Physical Therapy Current Condition Current Condition Evaluation Date 04/17/18 Treatment Diagnosis L2-4 redo/L5-S1 lami/fusion , impaired gait and mobility Precautions Lumbar Precautions Log Roll No Twisting Limit Bending Lifting Restriction of 10 lbs Gait Belt above Incisional Area M3 PT-IP Subjective Start: 04/17/18 13:01 Freq: NEEDED Status: Active Protocol: Document 04/18/18 15:26 [facility] (Rec: 04/18/18 15:46 [facility] [id number]) Subjective Physical Therapy Visit Type Type Treatment Note Visit Start Time 15:08 Visit Stop Time 15:26 Total Visit Minutes 18 Number of PROMOTIONS TEAM LEADER Visits 0 Physical Therapy Visit Comments Patient Comments pt states his pain is a little higher, pain a little in both groin regions. Therapy Pain Assessment Location Back Intensity 4 Scale Used Numeric (1 - 10) M4 PT-IP Mobility and Gait Start: 04/17/18 13:01 Freq: NEEDED Status: Active Protocol: Document 04/18/18 15:26 [facility] (Rec: 04/18/18 15:46 [facility] [id number]) PT-Bed Mobility Assessment Rolling Type of Rolling Log Rolling Level of Assist Moderate Assistance 1 Person Assistance Supine to Sit Supine to Sit Standby Assistance Sit to Supine Sit to Supine Moderate Assistance 1 Person Assistance Scooting Scooting to Edge of Bed Standby Assistance PT-Transfer Assessment Sit to and From Stand Sit to and from Stand Standby Assistance Equipment Transfer Assistive Device Gait Belt Front Wheeled Walker Transfers Transfer Destination Bed Transfer Technique Stand Step Pivot Transfer Ability Level of Assist Standby Assistance Gait Assessment Gait Gait Assistance Required: Standby Assistance Distance (Feet) 110 Assistive Devices Assistive Device Gait Belt Front Wheeled Walker Gait Deviations General Gait Pattern Antalgic Decreased Feet Clearance Wide Based Gait Factors Limiting Gait Function Factors Limiting Gait Function Decreased Activity Tolerance Decreased Strength Pain Stair Climbing Assessment Comments Stair Climbing Comments refused stairs today M5 PT-IP Objective Assessments Start: 04/17/18 13:01 Freq: NEEDED Status: Active Protocol: Document 04/18/18 15:26 [facility] (Rec: 04/18/18 15:46 [facility] [id number]) Other Assessments Other Other Assessments shadow dressing, with L inferior corner rolled up and small exposed abner (RN changed @ end of session). M6 PT-IP Treatment Start: 04/17/18 13:01 Freq: NEEDED Status: Active Protocol: Document 04/18/18 15:26 [facility] (Rec: 04/18/18 15:46 [facility] [id number]) Physical Therapy Treatment Education Education Provided Precautions M7 PT-IP Assessment and Plan Start: 04/17/18 13:01 Freq: NEEDED Status: Active Protocol: Document 04/18/18 15:26 [facility] (Rec: 04/18/18 15:46 [facility] [id number]) PT Summary Assessment and Plan Summary Progress Towards Goals Progressing Toward Goals Assessment Summary POD #2. Pt continues to require assistance of both LEs getting back into bed with reverse log roll technique. His pain level was a little higher this afternoon, but able to ambulate with SBA 110 ft, increased reliance of FWW to offload the lower body. At this point, pt is not at a safe indep. level to manage alone at home, and would greatly benefit from SNF rehabilitation upon d/c. He refused stairs this afternoon. Goals Bed Mobility Goal Independent Transfer Goal Independent Gait Goal Independent Front Wheel Walker Gait Distance 300 ft Other Goals up/down 2 steps R ascending rail and SBA Days to Meet Goals 5 Frequency of Treatment Frequency Of Treatment Twice a Day Treatment Plan Other Recommendations and Next Treatment reverse log roll, stairs Focus Recommendations To Nursing Amount of Assist Needed 1 Person Assist Discharge Recommendations PT Discharge Recommendations SNF Rehab
[2018-04-18] MEDS: CHLORTHALIDONE 25 MG TABLET 12.5 MG PO (20:25)
[2018-04-18] MEDS: SENNOSIDES 8.6 MG TABLET 17.2 MG PO (20:26)
[2018-04-18] MEDS: GABAPENTIN 300 MG CAPSULE PO (20:26)
[2018-04-18] MEDS: AMLODIPINE 5 MG TABLET 10 MG PO (20:26)
[2018-04-18] MEDS: LOSARTAN 50 MG TABLET 100 MG PO (20:27)
[2018-04-18] MEDS: TAMSULOSIN 0.4 MG CAPSULE 0.8 MG PO (20:27)
[2018-04-18] MEDS: SIMVASTATIN 20 MG TABLET PO (20:27)
[2018-04-18] MEDS: SODIUM CHLORIDE 0.9% FLUSH 10 ML IV (21:25)
[2018-04-19] VITALS (15 sets, daily range): BP systolic 56–129; BP diastolic 33–61; PULSE 60–74; RESP 16–20; TEMP 36.4–37.4; O2SAT 94–97
--- NOTE | 2018-04-19 06:39 | PM.PNPO.1 ---
Subjective Date Patient Seen: 04/19/18 Time Patient Seen: 06:39 Interval history: Pain level is about 3/10. All across the back. Trying to just take 1 pill at a time because 2 pills makes him somewhat groggy. Legs feel very good. Still requiring a fair amount of assistance to get out of bed. He had been saturating his dressings in the 1st day but this has greatly slowed down in the past day or so. Exam Vital Signs (past 8 hours): - 04/18/18 23:40 Temperature 98.3 F Pulse Rate 72 Respiratory Rate 18 Blood Pressure 117/59 L Pulse Oximetry 94 Oxygen Delivery Method CPAP Oxygen Flow Rate 1 Back/Spine/Pelvis Other: 5/5 motor both lower extremities 1 cm spot on new dressing. This had been changed about 4 hr ago. Objective Labs Result Diagrams: 04/17/18 05:00 Assessment & Plan Post-op Postoperative Procedures Operation Date: 04/16/18 11:45 Actual Procedures Side Surgeon p L2-3,L3-4 redo L5-S1 Laminictomy & Instru Ant/Post Fusion w/bone graft L2-S1 Raj Mcdaniel MD I think he is doing as expected. Continue to mobilize with physical therapy. Dressing changes as needed. He is stable to transfer to nursing home when bed available.
[2018-04-19] MEDS: METOPROLOL ER 50 MG TABLET 100 MG PO ×2 (07:43→21:20)
[2018-04-19] MEDS: HYDROCODONE/ACET 5/325 TABLET 1 TAB PO ×2 (07:43→17:50)
[2018-04-19] MEDS: DOCUSATE 100 MG CAPSULE PO ×2 (07:43→21:29)
[2018-04-19] MEDS: FLECAINIDE 100 MG TABLET PO (07:44)
[2018-04-19] MEDS: MULTIVITAMIN 1 TABLET 1 TAB PO (07:45)
[2018-04-19] MEDS: SODIUM CHLORIDE 0.9% FLUSH 10 ML IV ×2 (07:45→21:31)
--- NOTE | 2018-04-19 08:56 | PC.NURSE ---
Addendum entered by Maxine Sosa R.N. 04/19/18 10:33: BP has remained on the low side, 90/41, Pt reports slight dizziness when standing. PT holding until this afternoon, Pt back to bed and dressing changed after showering/damp. Scant serosang drainage noted. Dated and timed. Original Note: Am shift Pt A/o x3, slight delay to speech after [place] for pain. PT into work with Pt, c/o dizziness with standing. Orthostatic hypotension. Had rec'd Metoprolol and [place] for PT, Reclined and enc PO fluids. Denies dizziness at rest.
--- NOTE | 2018-04-19 10:35 | PC.NURSE ---
BOIS FORTE, requires multiple instructions for completion.
--- NOTE | 2018-04-19 11:51 | PT.IPTN ---
Current Diagnoses Spinal stenosis, lumbar region with neurogenic claudication (04/16/18) Strain of muscle, fascia and tendon of lower back, subsequent encounter (04/16/18) Other specified postprocedural states (04/16/18) Surgery Performed Operation Date: 04/16/18 11:45 Actual Procedures p L2-3,L3-4 redo L5-S1 Laminictomy & Instru Ant/Post Fusion w/bone graft L2-S1 - Raj Mcdaniel MD Physical Therapy Treatment Note M2 PT-IP Current Condition Start: 04/17/18 13:01 Freq: NEEDED Status: Active Protocol: Document 04/18/18 15:26 [facility] (Rec: 04/18/18 15:46 [facility] [id number]) Physical Therapy Current Condition Current Condition Evaluation Date 04/17/18 Treatment Diagnosis L2-4 redo/L5-S1 lami/fusion , impaired gait and mobility Precautions Lumbar Precautions Log Roll No Twisting Limit Bending Lifting Restriction of 10 lbs Gait Belt above Incisional Area M3 PT-IP Subjective Start: 04/17/18 13:01 Freq: NEEDED Status: Active Protocol: Document 04/19/18 09:00 RS (Rec: 04/19/18 11:51 RS [id number]) Subjective Physical Therapy Visit Type Type Treatment Note Visit Start Time 08:30 Visit Stop Time 09:00 Total Visit Minutes 30 Number of BODY DESIGNER Visits 0 Physical Therapy Visit Comments Patient Comments Pt reports sleeping well until 3am, when he woke up and has been up since, pt also feels ready to go back to sleep for a nap right now. Therapy Pain Assessment Pain When Pain Assessed At Rest Pain Present Pain Present Denied Pain M4 PT-IP Mobility and Gait Start: 04/17/18 13:01 Freq: NEEDED Status: Active Protocol: Document 04/19/18 09:00 RS (Rec: 04/19/18 11:51 RS [id number]) PT-Bed Mobility Assessment Rolling Type of Rolling Log Rolling Level of Assist Moderate Assistance 1 Person Assistance Supine to Sit Supine to Sit Standby Assistance Sit to Supine Sit to Supine Moderate Assistance 1 Person Assistance Scooting Scooting to Edge of Bed Standby Assistance PT-Transfer Assessment Sit to and From Stand Sit to and from Stand Contact Guard Assistance Equipment Transfer Assistive Device Gait Belt Front Wheeled Walker Transfers Transfer Destination Bed Chair Transfer Technique Stand Step Pivot Transfer Ability Level of Assist Contact Guard Assistance Comments Mobility Comments BP sitting beginnin/45, BP standin/33, BP sitting after exercises: 91/50. BP inversely corresponded with c/ o dizziness/nausea. Gait Assessment Comments Gait Comments not attempted this session due to low BP PT-Balance Assessment Sitting Balance and Reactions Static Sitting Balance Ability Good Dynamic Sitting Balance Ability Good Standing Balance and Reactions Static Standing Balance Ability Fair Dynamic Standing Balance Ability Fair Device Used FWW M5 PT-IP Objective Assessments Start: 04/17/18 13:01 Freq: NEEDED Status: Active Protocol: Document 04/18/18 15:26 [facility] (Rec: 04/18/18 15:46 [facility] [id number]) Other Assessments Other Other Assessments shadow dressing, with L inferior corner rolled up and small exposed abner (RN changed @ end of session). M6 PT-IP Treatment Start: 04/17/18 13:01 Freq: NEEDED Status: Active Protocol: Document 04/19/18 09:00 RS (Rec: 04/19/18 11:51 RS [id number]) Physical Therapy Treatment Education Education Provided Precautions M7 PT-IP Assessment and Plan Start: 04/17/18 13:01 Freq: NEEDED Status: Active Protocol: Document 04/19/18 09:00 RS (Rec: 04/19/18 11:51 RS [id number]) PT Summary Assessment and Plan Potential Rehabilitation Potential Good Status of Condition at Evaluation Evolving Summary Impairments Pain Strength Balance Bed Mobility Transfers Gait Activity Tolerance Progress Towards Goals Slow Progress due to Medical Issues Assessment Summary POD#3. Pt with hypotension in sitting at rest with positive orthostatic drop in standing, getting down to 56/33mmHg. Pt' s dizziness/nausea increasing as well. Pt able to participate in seated LE exercises. Afterward BP pricila to 90/51mmHG with improved but still present dizziness/ nausea. Gait was not performed this session due to symptomatic hypotension, RN aware. Despite this, pt does appear to be slowly getting stronger, however, still not safe to go home alone. Continue to recommend pt transition to SNF rehab once medically ready. Goals Bed Mobility Goal Independent Transfer Goal Independent Gait Goal Independent Front Wheel Walker Gait Distance 300 ft Other Goals up/down 2 steps R ascending rail and SBA Days to Meet Goals 4 Frequency of Treatment Frequency Of Treatment Twice a Day Treatment Plan Physical Therapy Treatment Plan Bed Mobility Training Transfer Training Gait Training Balance Retraining Discharge Planning Hot or Cold Pack Neuromuscular Re-ed Other Recommendations and Next Treatment reverse log roll, stairs Focus Recommendations To Nursing Amount of Assist Needed 1 Person Assist
--- NOTE | 2018-04-19 15:11 | PT.IPTN ---
Current Diagnoses Spinal stenosis, lumbar region with neurogenic claudication (04/16/18) Strain of muscle, fascia and tendon of lower back, subsequent encounter (04/16/18) Other specified postprocedural states (04/16/18) Surgery Performed Operation Date: 04/16/18 11:45 Actual Procedures p L2-3,L3-4 redo L5-S1 Laminictomy & Instru Ant/Post Fusion w/bone graft L2-S1 - Raj Mcdaniel MD Physical Therapy Treatment Note M2 PT-IP Current Condition Start: 04/17/18 13:01 Freq: NEEDED Status: Active Protocol: Document 04/18/18 15:26 [facility] (Rec: 04/18/18 15:46 [facility] [id number]) Physical Therapy Current Condition Current Condition Evaluation Date 04/17/18 Treatment Diagnosis L2-4 redo/L5-S1 lami/fusion , impaired gait and mobility Precautions Lumbar Precautions Log Roll No Twisting Limit Bending Lifting Restriction of 10 lbs Gait Belt above Incisional Area M3 PT-IP Subjective Start: 04/17/18 13:01 Freq: NEEDED Status: Active Protocol: Document 04/19/18 15:10 [facility] (Rec: 04/19/18 15:11 [facility] [id number]) Subjective Physical Therapy Visit Type Type Patient Refusal Visit Start Time 15:10 Notes Pt states he received pain meds 15 min ago and just wants to sleep. M4 PT-IP Mobility and Gait Start: 04/17/18 13:01 Freq: NEEDED Status: Active Protocol: Document 04/19/18 09:00 RS (Rec: 04/19/18 11:51 RS [id number]) PT-Bed Mobility Assessment Rolling Type of Rolling Log Rolling Level of Assist Moderate Assistance 1 Person Assistance Supine to Sit Supine to Sit Standby Assistance Sit to Supine Sit to Supine Moderate Assistance 1 Person Assistance Scooting Scooting to Edge of Bed Standby Assistance PT-Transfer Assessment Sit to and From Stand Sit to and from Stand Contact Guard Assistance Equipment Transfer Assistive Device Gait Belt Front Wheeled Walker Transfers Transfer Destination Bed Chair Transfer Technique Stand Step Pivot Transfer Ability Level of Assist Contact Guard Assistance Comments Mobility Comments BP sitting beginnin/45, BP standin/33, BP sitting after exercises: 91/50. BP inversely corresponded with c/ o dizziness/nausea. Gait Assessment Comments Gait Comments not attempted this session due to low BP PT-Balance Assessment Sitting Balance and Reactions Static Sitting Balance Ability Good Dynamic Sitting Balance Ability Good Standing Balance and Reactions Static Standing Balance Ability Fair Dynamic Standing Balance Ability Fair Device Used FWW M5 PT-IP Objective Assessments Start: 04/17/18 13:01 Freq: NEEDED Status: Active Protocol: Document 04/18/18 15:26 [facility] (Rec: 04/18/18 15:46 [facility] [id number]) Other Assessments Other Other Assessments shadow dressing, with L inferior corner rolled up and small exposed abner (RN changed @ end of session). M6 PT-IP Treatment Start: 04/17/18 13:01 Freq: NEEDED Status: Active Protocol: Document 04/19/18 09:00 RS (Rec: 04/19/18 11:51 RS [id number]) Physical Therapy Treatment Education Education Provided Precautions M7 PT-IP Assessment and Plan Start: 04/17/18 13:01 Freq: NEEDED Status: Active Protocol: Document 04/19/18 09:00 RS (Rec: 04/19/18 11:51 RS [id number]) PT Summary Assessment and Plan Potential Rehabilitation Potential Good Status of Condition at Evaluation Evolving Summary Impairments Pain Strength Balance Bed Mobility Transfers Gait Activity Tolerance Progress Towards Goals Slow Progress due to Medical Issues Assessment Summary POD#3. Pt with hypotension in sitting at rest with positive orthostatic drop in standing, getting down to 56/33mmHg. Pt' s dizziness/nausea increasing as well. Pt able to participate in seated LE exercises. Afterward BP pricila to 90/51mmHG with improved but still present dizziness/ nausea. Gait was not performed this session due to symptomatic hypotension, RN aware. Despite this, pt does appear to be slowly getting stronger, however, still not safe to go home alone. Continue to recommend pt transition to SNF rehab once medically ready. Goals Bed Mobility Goal Independent Transfer Goal Independent Gait Goal Independent Front Wheel Walker Gait Distance 300 ft Other Goals up/down 2 steps R ascending rail and SBA Days to Meet Goals 4 Frequency of Treatment Frequency Of Treatment Twice a Day Treatment Plan Physical Therapy Treatment Plan Bed Mobility Training Transfer Training Gait Training Balance Retraining Discharge Planning Hot or Cold Pack Neuromuscular Re-ed Other Recommendations and Next Treatment reverse log roll, stairs Focus Recommendations To Nursing Amount of Assist Needed 1 Person Assist
--- NOTE | 2018-04-19 15:23 | CM.DPC ---
DCP Cont: Talked to Val at [facility], stated that they are getting full, but expecting discharges this week. They have this patient on radar, but unsure if bed would be available for tomorrow. Called and spoke to Garrick at [facility] for second choice for patient. Let him know that this case checker would fax over clinical information, to see if they can accept this patient, should [facility] be full. Clinical notes sent. Garrick at [facility] will review and let us know tomorrow morning if bed is available for this patient. P: [facility] or [facility]. DCP to follow up on bed availability. Tracey Bill RN/Paper Carrier
--- NOTE | 2018-04-19 15:49 | OT.IP.TRT ---
Current Diagnoses Spinal stenosis, lumbar region with neurogenic claudication (04/16/18) Strain of muscle, fascia and tendon of lower back, subsequent encounter (04/16/18) Other specified postprocedural states (04/16/18) Surgery Performed Operation Date: 04/16/18 11:45 Actual Procedures p L2-3,L3-4 redo L5-S1 Laminictomy & Instru Ant/Post Fusion w/bone graft L2-S1 - Raj Mcdaniel MD Occupational Therapy Treatment Note M2 OT-IP Current Condition Start: 04/17/18 16:30 Freq: Status: Active Protocol: Document 04/17/18 16:32 [facility] (Rec: 04/17/18 16:47 [facility] [id number]) Occupational Therapy Current Condition Current Condition Evaluation Date 04/17/18 Treatment Diagnosis Spinal Stenosis Diagnosis Onset Date 04/16/18 Post Operative Precautions Lumbar Precautions Log Roll No Twisting Limit Bending Lifting Restriction of 10 lbs Gait Belt above Incisional Area M3 OT- IP Subjective and Pain Start: 04/17/18 16:30 Freq: Status: Active Protocol: Document 04/19/18 15:30 [facility] (Rec: 04/19/18 15:49 [facility] [id number]) OT- Subjective Occupational Therapy Visit Type Type Patient Unavailable Notes Checked on pt and pt asleep in bed, per HEAT TREATMENT TECHNICIAN just spoke to pt and refused treatment as wanting to sleep.
[2018-04-19] MEDS: AMLODIPINE 5 MG TABLET 10 MG PO (21:29)
[2018-04-19] MEDS: CHLORTHALIDONE 25 MG TABLET 12.5 MG PO (21:29)
[2018-04-19] MEDS: GABAPENTIN 300 MG CAPSULE PO (21:30)
[2018-04-19] MEDS: LOSARTAN 50 MG TABLET 100 MG PO (21:30)
[2018-04-19] MEDS: SENNOSIDES 8.6 MG TABLET 17.2 MG PO (21:31)
[2018-04-19] MEDS: TAMSULOSIN 0.4 MG CAPSULE 0.8 MG PO (21:31)
[2018-04-19] MEDS: SIMVASTATIN 20 MG TABLET PO (21:31)
[2018-04-20 00:10] VITALS: O2SAT 96
[2018-04-20 03:45] VITALS: BP 120/64; PULSE 66; RESP 18; TEMP 36.7; O2SAT 96
[2018-04-20 07:00] VITALS: BP 119/60; PULSE 62; RESP 16; TEMP 36.4; O2SAT 97
[2018-04-20] MEDS: DOCUSATE 100 MG CAPSULE PO (08:12)
[2018-04-20] MEDS: MULTIVITAMIN 1 TABLET 1 TAB PO (08:13)
[2018-04-20] MEDS: SODIUM CHLORIDE 0.9% FLUSH 10 ML IV (08:13)
[2018-04-20] MEDS: METOPROLOL ER 50 MG TABLET 100 MG PO (08:18)
[2018-04-20 08:28] VITALS: O2SAT 96
[2018-04-20] MEDS: FLECAINIDE 100 MG TABLET PO (08:53)
--- NOTE | 2018-04-20 09:56 | OT.IP.TRT ---
Current Diagnoses Spinal stenosis, lumbar region with neurogenic claudication (04/16/18) Strain of muscle, fascia and tendon of lower back, subsequent encounter (04/16/18) Other specified postprocedural states (04/16/18) Surgery Performed Operation Date: 04/16/18 11:45 Actual Procedures p L2-3,L3-4 redo L5-S1 Laminictomy & Instru Ant/Post Fusion w/bone graft L2-S1 - Raj Mcdaniel MD Occupational Therapy Treatment Note M2 OT-IP Current Condition Start: 04/17/18 16:30 Freq: Status: Active Protocol: Document 04/17/18 16:32 [facility] (Rec: 04/17/18 16:47 [facility] [id number]) Occupational Therapy Current Condition Current Condition Evaluation Date 04/17/18 Treatment Diagnosis Spinal Stenosis Diagnosis Onset Date 04/16/18 Post Operative Precautions Lumbar Precautions Log Roll No Twisting Limit Bending Lifting Restriction of 10 lbs Gait Belt above Incisional Area M3 OT- IP Subjective and Pain Start: 04/17/18 16:30 Freq: Status: Active Protocol: Document 04/20/18 09:46 [facility] (Rec: 04/20/18 09:56 [facility] [id number]) OT- Subjective Occupational Therapy Visit Type Type Treatment Note Visit Start Time 08:53 Visit Stop Time 09:43 Total Visit Minutes 50 Occupational Therapy Visit Comments Patient Comments Pt willing to shower. OT Pain Assessment Pain When Pain Assessed At Rest Pain Present Pain Present Pain Reported Location Back Intensity 2 Scale Used Numeric (1 - 10) M4 OT- IP ADL's Start: 04/17/18 16:30 Freq: Status: Active Protocol: Document 04/20/18 09:46 [facility] (Rec: 04/20/18 09:56 [facility] [id number]) OT ADL-Grooming General Evaluation Grooming Ability Standby Assistance Areas Needing Assistance Retrieving/Set-up of Grooming Items Comments OT Grooming Comments Pt able to shave, wash face and hands and comb his hair at edge of bed after showering. OT ADL-Dressing General Eval Upper Body Dressing Ability Independent Lower Body Dressing Ability Contact Guard Assistance Areas Needing Assistance Underpants/Brief Socks Comments OT Dressing Comments Pt able to use gravure press operator and socks aid to catracho broef and socks, educated to donnleft LE first as weaher side. OT ADL-Toileting General Evaluation Toileting Ability Standby Assistance Areas Needing Assistance Manage Clothing Perform Perineal Hygiene Devices Toileting Assistive Devices Grab Bars Comments OT Toileting Comments Heavy use of greab bar to stand. OT ADL-Bathing Bathing Type Bathing Type Shower General Evaluation Bathing Ability Moderate Assistance Areas Needing Assistance Wash/Dry Back Wash/Dry Lower Extremities Devices Bathing Equipment Hand Held Shower Sprayer Grab Bars Comments OT Bathing Comments Pt needing assist for LE and back, pt states has a long handled sponge at home to use. M6 OT- IP Functional Cognition Start: 04/17/18 16:30 Freq: Status: Active Protocol: Document 04/20/18 09:46 [facility] (Rec: 04/20/18 09:56 [facility] [id number]) Cognitive Factors Limiting Selfcare Function Cognitive Ability Level of Alertness Alert Patient Orientation Name Place Situation Attention Span Ability Capable of Focused Attention Capable of Sustained Attention Ability to Follow Commands Able to Follow Multi-Step Commands Memory Description Short Term Impaired Safety Awareness Decreased Ability to Apply Precautions Problem Solving Ability Needs Assist to Identify Solutions Cognitive Comments Cognitive Assessment Comments Pt only able to recall 2/3 back precaution. While doing his hygiene needs, needing cues not to twist and educated to stand to wipe. OT- Vision and Hearing OT- Hearing Assessment OT- Hearing Assessment Use of Hearing Aids M7 OT- IP Mobility and Balance Start: 04/17/18 16:30 Freq: Status: Active Protocol: Document 04/20/18 09:46 [facility] (Rec: 04/20/18 09:56 [facility] [id number]) OT- Bed Mobility Assessment Sit to Supine Sit to Supine Assist Moderate Assistance 1 Person Assistance OT-Transfer Assessment Sit to and From Stand Sit to and from Stand Standby Assistance Transfers Transfer Ability Standby Assistance Contact Guard Assistance Technique Transfer Destination Bed Shower Stall Toilet Transfer Technique Stand Step Pivot Devices Transfer Assistive Devices Gait Belt Front Wheeled Walker Comments Mobility Comments CGA to step over threshold of shower. pt still needing MOD A x1 to help get his legs back into bed. OT- Balance Assessment Sitting Balance and Reactions Static Sitting Balance Ability Normal Dynamic Sitting Balance Ability Normal Standing Balance and Reactions Static Standing Balance Ability Good Dynamic Standing Balance Ability Fair M8 OT- IP Objective Assessments Start: 04/17/18 16:30 Freq: Status: Active Protocol: Document 04/17/18 16:32 [facility] (Rec: 04/17/18 16:47 [facility] [id number]) OT Gross Range of Motion Upper Extremity Range of Motion Assessment Within Functional Limits OT Strength Comments Strength Comments BUE 4/5 M9 OT- IP Assessment and Plan Start: 04/17/18 16:30 Freq: Status: Active Protocol: Document 04/20/18 09:46 [facility] (Rec: 04/20/18 09:56 [facility] [id number]) OT Summary Assessment and Plan Potential Rehabilitation Potential Good Analytic Complexity at Evaluation Low Summary OT Impairments Pain Balance Functional Cognition Functional Mobility Dressing Toileting Bathing Toilet Transfers Shower Transfers Progress Towards Goals Progressing Toward Goals Assessment Summary Pt making improvements with mobility and ADl needs with AED. Pt still needing education and reminders for back precautions and would benefit from short skilled rehab to increase safety for back precaution for all needs and return to prior level of function. Goals Grooming Goal Independent Dressing Goal Independent Toileting Goal Independent Bathing Goal Standby Assistance Toilet Transfer Goal Independent Shower Transfer Goal Standby Assistance Days to Meet Goals 5 Frequency of Treatment Frequency Of Treatment Once a Day Treatment Plan OT Treatment Plan ADL Training Functional Cognition Training Functional Mobility Patient/Family Education Discharge Planning Discharge Recommendations OT Discharge Recommendations SNF Rehab
--- NOTE | 2018-04-20 10:26 | PM.DS.1 ---
History of Present Illness Date Patient Seen: 04/20/18 Chief complaint: [id number] Narrative: Patient seen bedside s/p L2-3,L3-4 redo L5-S1 Laminictomy & Instru Ant/Post Fusion w/bone graft L2-S1 with Dr. Mcdaniel on 04/16/18. Patient is POD #4. He is doing better, pain is well controlled, he denies CP, SOB, N/V, calf pain, or other neurological symptoms. He is ready for discharge to a SNF. Discharge Providers Date of admission: 04/16/18 09:41 Primary care physician: Edwar Ellison MD Consults: 04/16/18 22:09 Consult to Occupational Therapy Evaluate & Treat Comment: Physician Instructions: Evaluate and treat Consult to Physical Therapy Evaluate & Treat Comment: Physician Instructions: Evaluate and Treat Discharge provider: Dipti Miguel PA-C Discharge Date: 04/20/18 Summary Discharge Diagnosis: Lumbar stenosis with neurogenic claudication Hospital Course: Patient admitted to the hospital s/p L2-3,L3-4 redo L5-S1 Laminictomy & Instrumented Ant/Post Fusion w/bone graft L2-S1 with Dr. Mcdaniel on 04/16/18. Patient tolerated the procedure well with no major complications. Patient was transferred to the acute care floor and placed on standard spine post-op protocols. He was seen by PT and was recommended for a discharge to a SNF. Patient was stable and ready for discharge on 04/20/18. Status at Discharge Cognitive/behavioral status at discharge: Alert and oriented x3 Functional status at discharge: uses cane/walker Overall status at discharge: patient is progressing back to baseline Time Spent with Patient Less than 30 minutes Exam Vital Signs (past 8 hours): - 04/20/18 03:45 04/20/18 07:00 04/20/18 08:28 Temperature 98.1 F 97.6 F Pulse Rate 66 62 Respiratory Rate 18 16 Blood Pressure 120/64 119/60 Pulse Oximetry 96 97 96 Oxygen Delivery Method Room Air Oxygen Flow Rate 0 Narrative Exam Narrative: [facility] NAD A&Ox3. Dressing on posterior spine and left iliac crest intact with old drainage. No erythema/edema surrounding surgical areas. No focal deficits noted, calves are soft and compressible. Objective Labs Result Diagrams: 04/17/18 05:00 Discharge Plan Discharge Plan Patient Disposition: SNF Under care of provider: Facility provider I certify [facility] care is medically necessary on a continuing basis for any conditions for which he/ she received care during this hospitalization.: Yes The receiving facility has agreed to accept transfer and provide medical treatment.: Yes Discharge Med Rec/Prescriptions Prescriptions: New docusate sodium 100 mg Capsule 100 mg PO BID Qty: 0 RF: 0 hydroxyzine pamoate 25 mg Capsule 25 mg PO Q4HR PRN (Reason: Nausea And Vomiting) Qty: 0 RF: 0 hydrocodone-acetaminophen 5-325 mg Tablet 1 tab PO Q4HR PRN (Reason: pain) Qty: 15 RF: 0 Continue metoprolol succinate 100 mg Tablet Extended Release 24 Hr 100 mg PO BID RF: 0 chlorthalidone 25 mg Tablet 12.5 mg PO BEDTIME RF: 0 tamsulosin 0.4 mg Capsule 0.8 mg PO BEDTIME RF: 0 amlodipine 10 mg Tablet 10 mg PO BEDTIME RF: 0 simvastatin 20 mg Tablet 20 mg PO BEDTIME RF: 0 flecainide 100 mg Tablet 100 mg PO BID RF: 0 losartan 100 mg Tablet 100 mg PO BEDTIME RF: 0 multivitamin Capsule 1 cap PO DAILY RF: 0 Discontinued hydrocodone-acetaminophen 5-325 mg Tablet 1 - 2 tab PO Q4H PRN (Reason: pain) RF: 0 apixaban [Eliquis] 5 mg Tablet 5 mg PO BID RF: 0 Follow up/Referrals: Edwar Ellison MD [Primary Care Provider] - Raj Mcdaniel MD [Physician] - (Follow up in 10-14 days at previously scheduled appointment.) Discharge Health Status Brief summary of current health status: Stable for discharge to SNF, needs more PT/OT prior to discharge home. Expect around 1 week of care. Ask at your first post-op visit when you should re-start on your Eliquis. 1-person assist with FWW. Precautions: [place] Provider Discharge Instructions Diet: Diet as Tolerated Liquid consistency: Normal/Thin Food texture: Regular Diet comment: Regular Activity: Weightbearing as tolerated, no twisting/bending/lifting greater than 5 lbs. Cold/Heat Therapy: Apply ice to affected site 20 minutes at a time at least hourly as needed for pain/swelling Skin/Wound/Dressing Care Report to your healthcare provider any signs of infection, such as:: chills, fever, night sweats, increased pain, unusual drainage and unusual redness Dressing: Keep dressing clean, dry, and intact [facility] Reason for rehabilitation: Post-operative therapy Rehab type: Physical therapy and Occupational therapy Discharge Data Primary Care Provider: Edwar Ellison Attending Provider: Raj Mcdaniel Admit Date/Time: 04/16/18 09:41
[2018-04-20 11:00] VITALS: BP 112/60; PULSE 62; RESP 18; TEMP 36.9; O2SAT 97
--- NOTE | 2018-04-20 11:18 | CM.DPC ---
DCP/continued: Reviewed chart. Order obtained for patient to discharge to SNF today. First SNF choice was [facility]. EMBROIDERY SUPERVISOR placed call to Val at [facility] and no beds available today. Therefore, second choice is [facility]. Placed call to Garrick with admissions and he reports that they would like to review medication list before making final decision. Asked [facility] to fax d/c orders, PASRR, and medication list. Per Garrick it is anticipated that patient will be accepted. [facility] will set up transport for 1:00pm or after. RN updated. Met with patient and updated him on above status. Patient aware and agreeable to transfer to [facility] today. P: Anticipate acceptance at [facility] today. Awaiting final approval. SUGEY Jean
--- NOTE | 2018-04-20 11:31 | PC.NURSE ---
Addendum entered by Cass Gonzalez R.N. 04/20/18 13:47: Transfer: All belongings sent with patient at discharge. Transfer packet given to transport staff, taken out to vehicle by transport staff. Original Note: Addendum entered by Cass Gonzalez R.N. 04/20/18 12:32: IV dc'd intact. Replaced dressings on low back and L flank/hip with Coversite dressings. Incisions (2 on either side of back, 1 on L flank) all well-approximated with sutures. No active bleeding, drainage or erythema noted. Original Note: Addendum entered by Cass Gonzalez R.N. 04/20/18 12:14: Report called to Vicki at [facility], anticipate patient transfer to SNF approx 1300. Original Note: Addendum entered by Cass Gonzalez R.N. 04/20/18 12:01: Medicated with 1/2 tab Vicodin for 3/10 back pain. Sitting up in chair working on lunch, visiting with friends. Chair alarm on, call light in reach. Original Note: Shift summary: Alert and oriented X3. HABEMATOLEL. Dressings to mid low back and L hip dry/intact with shadow drainage. 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 Minimal back pain, rated 2/10 this morning and understands he can ask for pain meds any time. CMS+, PP+. Denies paresthesias or B/B issues. Lungs CTA, HRR. Able to make needs known and calls appropriately. Back in bed after showering with OT this morning. Call light in reach, bed alarm on.
--- NOTE | 2018-04-20 11:51 | PT.IPTN ---
Current Diagnoses Spinal stenosis, lumbar region with neurogenic claudication (04/16/18) Strain of muscle, fascia and tendon of lower back, subsequent encounter (04/16/18) Other specified postprocedural states (04/16/18) Surgery Performed Operation Date: 04/16/18 11:45 Actual Procedures p L2-3,L3-4 redo L5-S1 Laminictomy & Instru Ant/Post Fusion w/bone graft L2-S1 - Raj Mcdaniel MD Physical Therapy Treatment Note M2 PT-IP Current Condition Start: 04/17/18 13:01 Freq: NEEDED Status: Active Protocol: Document 04/18/18 15:26 [facility] (Rec: 04/18/18 15:46 [facility] [id number]) Physical Therapy Current Condition Current Condition Evaluation Date 04/17/18 Treatment Diagnosis L2-4 redo/L5-S1 lami/fusion , impaired gait and mobility Precautions Lumbar Precautions Log Roll No Twisting Limit Bending Lifting Restriction of 10 lbs Gait Belt above Incisional Area M3 PT-IP Subjective Start: 04/17/18 13:01 Freq: NEEDED Status: Active Protocol: Document 04/20/18 11:20 [facility] (Rec: 04/20/18 11:50 [facility] [email or web address]) Subjective Physical Therapy Visit Type Type Treatment Note Visit Start Time 11:20 Visit Stop Time 11:40 Total Visit Minutes 20 Number of DATA REVIEW SPECIALIST Visits 1 Physical Therapy Visit Comments Patient Comments Pt agreeable to get OOB. Therapy Pain Assessment Pain When Pain Assessed At Rest Pain Present Pain Present Pain Reported Location Back Intensity 5 Scale Used Numeric (1 - 10) M4 PT-IP Mobility and Gait Start: 04/17/18 13:01 Freq: NEEDED Status: Active Protocol: Document 04/20/18 11:20 [facility] (Rec: 04/20/18 11:50 [facility] [id number]) PT-Bed Mobility Assessment Rolling Type of Rolling Log Rolling Level of Assist Contact Guard Assistance Supine to Sit Supine to Sit Standby Assistance Scooting Scooting to Edge of Bed Standby Assistance PT-Transfer Assessment Sit to and From Stand Sit to and from Stand Contact Guard Assistance Equipment Transfer Assistive Device Gait Belt Front Wheeled Walker Transfers Transfer Destination Chair Transfer Technique walked Transfer Ability Level of Assist Contact Guard Assistance Comments Mobility Comments BP in supine 109/57, BP in standing 100/64, BP in standing after 10ft ambulation 106/57. Gait Assessment Gait Gait Assistance Required: Contact Guard Assist Distance (Feet) 50 Assistive Devices Assistive Device Gait Belt Front Wheeled Walker Gait Deviations General Gait Pattern Antalgic Decreased Feet Clearance Wide Based Gait Factors Limiting Gait Function Factors Limiting Gait Function Decreased Activity Tolerance Decreased Strength Pain M5 PT-IP Objective Assessments Start: 04/17/18 13:01 Freq: NEEDED Status: Active Protocol: Document 04/18/18 15:26 [facility] (Rec: 04/18/18 15:46 [facility] [id number]) Other Assessments Other Other Assessments shadow dressing, with L inferior corner rolled up and small exposed abner (RN changed @ end of session). M6 PT-IP Treatment Start: 04/17/18 13:01 Freq: NEEDED Status: Active Protocol: Document 04/19/18 09:00 [facility] (Rec: 04/19/18 11:51 [facility] [id number]) Physical Therapy Treatment Education Education Provided Precautions M7 PT-IP Assessment and Plan Start: 04/17/18 13:01 Freq: NEEDED Status: Active Protocol: Document 04/20/18 11:20 [facility] (Rec: 04/20/18 11:50 [facility] [id number]) PT Summary Assessment and Plan Summary Impairments Pain Strength Balance Bed Mobility Transfers Gait Activity Tolerance Progress Towards Goals Slow Progress due to Medical Issues Assessment Summary POD#4 Pt requiring less assist with log roll and supine-sit. Pt ambulated in room due to mild complaint of dizziness, pt ambulated ~50ft before wanting to sit due to friend entering room for a visit. Pt required cues during turns to prevent twisting. Goals Bed Mobility Goal Independent Transfer Goal Independent Gait Goal Independent Front Wheel Walker Gait Distance 300 ft Other Goals up/down 2 steps R ascending rail and SBA Days to Meet Goals 4 Frequency of Treatment Frequency Of Treatment Twice a Day Treatment Plan Physical Therapy Treatment Plan Bed Mobility Training Transfer Training Gait Training Balance Retraining Discharge Planning Hot or Cold Pack Neuromuscular Re-ed Recommendations To Nursing Amount of Assist Needed 1 Person Assist Discharge Recommendations PT Discharge Recommendations SNF Rehab
[2018-04-20] MEDS: HYDROCODONE/ACET 5/325 TABLET 1 TAB PO (11:52)
== END 2018-04-20 13:48 | DRG 455 ==
LOC: AC 13:31 → ICU 04-17 13:15 → AC 04-20 09:55 → ICU 04-20 12:37 → AC 04-20 12:37
PROVIDERS: Admitting Provider Orthopaedic Surgery; PCP Internal Medicine; Visit Provider Orthopaedic Surgery
PROC: 0SG00A0 Fusion of Lumbar Vertebral Joint with Interbody Fusion Device, Anterior Approach, Anterior Column, Open Approach (ICD-10-PCS; CPT 22558; principal; 2018-04-16 11:45)
DX: M48.062 Spinal stenosis, lumbar region with neurogenic claudication (principal); S39.012D Strain of muscle, fascia and tendon of lower back, subsequent encounter; I10 Essential (primary) hypertension; Z95.0 Presence of cardiac pacemaker; F32.9 Major depressive disorder, single episode, unspecified; G47.30 Sleep apnea, unspecified; I48.0 Paroxysmal atrial fibrillation; I49.5 Sick sinus syndrome; M43.16 Spondylolisthesis, lumbar region; M96.1 Postlaminectomy syndrome, not elsewhere classified; T88.59XA Other complications of anesthesia, initial encounter
CPT/HCPCS: 36415; 72100; 76001; 85014; 85018; 94760; 94762; 97110; 97116; 97161; 97165; 97530; 97535; C1776; J0330; J0595; J0690; J1100; J2250; J2274; J2405; J2704; J3010

== ENCOUNTER → 2019-07-14 14:30 | Outpatient (CLI) | payer MEDICARE, OTHER, SELFPAY ==
[2018-04-16 23:00] VITALS: BMI 29.0
--- NOTE | 2019-07-14 14:45 | DI.CT.S_ITS ---
PROCEDURE: CT LUMBAR SPINE WO CON INDICATIONS: Other specified postprocedural states TECHNIQUE: Noncontrast 3 mm thick sections acquired from the T12 level to the sacrum. Sagittal and coronal reformats were constructed. For radiation dose reduction, the following was used: automated exposure control. COMPARISON: [facility], CT, CT LUMBAR SPINE WO CON, 03/26/2018, 12:30. [facility] [place], CR, XR LUMBAR SPINE 2 OR 3 VIEWS, 10/13/2018, 10:33. FINDINGS: Image quality: Excellent. Bones: Postsurgical changes compatible with L2-S1 posterior and interbody fusion are noted. Orthopedic hardware is intact. 2-3 mm lucencies are noted adjacent to the S1 transpedicular screws concerning for loosening or infection. There is trace L1-L2 and L2-L3 retrolisthesis. There is trace L3-L4 and L4-L5 anterolisthesis. No acute vertebral body compression fractures. No suspicious lytic or blastic bony lesions. Severe L1-L2 and L5-S1 degenerative disc changes. Moderate L4-L5 degenerative disc changes. Moderate L3-L4 central canal narrowing. Moderate to severe right and severe left L1-L2 neural foraminal narrowing with slight compression of the exiting right L1 nerve root and marked compression of the exiting left L1 nerve root. Moderate to severe bilateral L2-L3 neural foraminal narrowing with slight compression of the exiting L2 nerve roots. Soft tissues: No retroperitoneal masses or hematomas. Visualized aorta is normal in caliber. Scattered atherosclerotic calcifications involving the visualized abdominal and pelvic vasculature. IMPRESSION: 1. Status post L2-L5 posterior fusion and L4 laminectomy. 2. Multilevel degenerative disc disease and facet arthropathy. 3. Moderate L3-L4 central canal narrowing. 4. Moderate to severe right and severe left L1-L2 neural foraminal narrowing. Moderate to severe bilateral L2-L3 neuroforaminal narrowing. 5. Compression of the exiting bilateral L1 nerve roots and the exiting bilateral L2 nerve roots secondary to neural foraminal narrowing. Please correlate clinically. 6. 2-3 mm lucencies adjacent to the bilateral S1 pedicle screws concerning for loosening or infection. Dictated by: Rashmi Gonsales MD, PhD on 07/14/2019 at 16:51 Approved by: Rashmi Gonsales MD, PhD on 07/14/2019 at 17:02
== END ==
PROVIDERS: PCP Internal Medicine; Referring Provider Orthopaedic Surgery; Visit Provider Orthopaedic Surgery
DX: M51.36 Other intervertebral disc degeneration, lumbar region (principal); M51.37 Other intervertebral disc degeneration, lumbosacral region; M47.816 Spondylosis without myelopathy or radiculopathy, lumbar region; M47.817 Spondylosis without myelopathy or radiculopathy, lumbosacral region; M48.061 Spinal stenosis, lumbar region without neurogenic claudication; Z98.1 Arthrodesis status
CPT/HCPCS: 72131